=== PATIENT | female | born 1945 | race Two or more races ===

== ENCOUNTER 2018-06-23 11:18 | Outpatient (CLI) | payer OTHER ==
[~2018-06-23 11:18] MED LIST: FOSAMAX35 MG PO; KETO10TA2 PO; PEPCID40 MG PO; SARELTO; SYNTHROID112 MCG PO; TENORETIC 100 T1 TAB PO; TENORMIN50 MG; ZOCOR
== END 2018-06-23 11:23 | disposition home or self-care (01) ==
LOC: RAD 501 11:18
DX: M25.561 Pain in right knee (principal)

== ENCOUNTER → 2021-03-02 | Outpatient (CLI) | payer OTHER | END | disposition home or self-care (01) | LOC: RAD 12:00 | DX: M17.12 Unilateral primary osteoarthritis, left knee (principal); M25.562 Pain in left knee ==

== ENCOUNTER 2022-08-29 14:20 | Outpatient (CLI) | payer OTHER | END 2022-08-29 14:28 | disposition home or self-care (01) | LOC: TOM 14:20 | DX: C71.9 Malignant neoplasm of brain, unspecified (principal); G44.1 Vascular headache, not elsewhere classified ==

== ENCOUNTER → 2022-12-25 | Outpatient (CLI) | payer OTHER | END | disposition home or self-care (01) | LOC: TOM 11:41 | PROVIDERS: ATTEND Psychiatry & Neurology Clinical Neurophysiology | DX: R51.9 Headache, unspecified (principal); Z86.73 Personal history of transient ischemic attack (TIA), and cerebral infarction without residual deficits ==

== ENCOUNTER 2023-04-06 23:33 | Emergency (ER) | payer OTHER ==
[~2023-04-06] VITALS: Ht 157.5 cm; Wt 63.0 kg
[2023-04-06] MEDS ORDERED: WALFARINA (23:53)
[2023-04-06] MEDS ORDERED: PRILOSEC OTC20 MG (23:54)
[2023-04-06] MEDS ORDERED: AZOR 10-20 MG1 EACH (23:54)
[2023-04-06] MEDS ORDERED: ATORVASTATIN CA20 MG (23:54)
[2023-04-06] MEDS ORDERED: ECOTRIN81 MG (23:54)
[2023-04-07 02:46] LABS: HEMATOCRIT 42.1 % (36.0-45.00); HEMOGLOBIN 14.3 g/dL (12.0-15.00); MEAN CELL VOLUME 87.7 fL (80.00-100.00); MEAN CORPUSCULAR HEMOGLOBIN 29.8 pg (27.00-32.0); PLATELET COUNT 239 K/uL (150-450); RED BLOOD COUNT 4.79 M/uL (4.00-6.00); RED CELL DISTRIBUTION WIDTH 13.9 % (11.5-14.5)
[2023-04-07 02:53] LABS: URINE APPEARANCE Turbid; URINE BILIRRUBIN Moderate (NEGATIVE); URINE BLOOD Large; URINE COLOR Red; URINE GLUCOSE Negative (NEGATIVE); URINE LEUKOCYTE Moderate; URINE NITRATE Positive; URINE UROBILINOGEN 0.2 E.U./dl
[2023-04-07 02:56] LABS: URINE BACTERIA 506.5 uL (0.0-1933); URINE EPITHELIAL CELLS 31.9 uL (0.0-38.8); URINE WBC 178.3 uL (0.0-23.2)
[2023-04-07 03:10] LABS: PROTHROMBIN TIME > 90.0 SECONDS (9.0-11.5)
[2023-04-07 03:11] LABS: PARTIAL THROMBOPLASTIN TIME 112.2 SECONDS (22.0-34.0)
[2023-04-07 03:15] LABS: URINE PROTEIN 300 (NEGATIVE); URINE RBC > 10558.9 uL (0.0-20.8)
[2023-04-07] MEDS ORDERED: CEPHALEXIN500 MG PO (08:06)
[2023-04-07 08:37] LABS: INR 3.72
[2023-04-07 08:41] LABS: PROTHROMBIN TIME 35.4 SECONDS (9.0-11.5)
[2023-04-07 08:42] LABS: PARTIAL THROMBOPLASTIN TIME 70.3 SECONDS (22.0-34.0)
== END 2023-04-07 08:23 ==
LOC: ER 23:34
PROVIDERS: General Practice
DX: N39.0 Urinary tract infection, site not specified (principal); R31.9 Hematuria, unspecified; Z86.73 Personal history of transient ischemic attack (TIA), and cerebral infarction without residual deficits; I10 Essential (primary) hypertension; E03.9 Hypothyroidism, unspecified; Z88.6 Allergy status to analgesic agent; F32.89 Other specified depressive episodes
CPT/HCPCS: 36415; 96365; 99284; J0696; J3430

== ENCOUNTER 2023-04-10 11:05 | Outpatient (CLI) | payer OTHER ==
[~2023-04-10 11:05] MED LIST changes: +ATORVASTATIN CA20 MG; +AZOR 10-20 MG1 EACH; +CEPHALEXIN500 MG PO; +ECOTRIN81 MG; +PRILOSEC OTC20 MG; +WALFARINA
== END 2023-04-10 11:13 | disposition home or self-care (01) ==
LOC: MRI 11:05
DX: M47.812 Spondylosis without myelopathy or radiculopathy, cervical region (principal); M47.22 Other spondylosis with radiculopathy, cervical region
CPT/HCPCS: 72141

== ENCOUNTER 2023-06-28 02:45 | Inpatient (IN) | payer OTHER ==
[~2023-06-28] VITALS: Ht 61 cm; Wt 64.0 kg
[2023-06-28] MEDS ORDERED: BUSPIRONE HCL15 MG (02:56)
[2023-06-28] MEDS ORDERED: GABAPENTIN300 M2 (02:56)
[2023-06-28] MEDS ORDERED: JANTOVEN2 MG (02:56)
[2023-06-28] MEDS ORDERED: GABAPENTIN100 M2 (02:56)
[2023-06-28] MEDS ORDERED: KETOROLAC TROMETHAMINE 30 MG VIAL IV STA (03:22)
[2023-06-28] MEDS ORDERED: MORPHINE SULFATE 4 MG/ML VIAL IV STA (03:24)
[2023-06-28] MEDS ORDERED: RINGERS SOLUTION,LACTATED 1,000 ML IV STA (05:06)
[2023-06-28 05:37] LABS: HEMATOCRIT 38.3 % (36.0-45.00); HEMOGLOBIN 13.1 g/dL (12.0-15.00); MEAN CELL VOLUME 88.2 fL (80.00-100.00); MEAN CORPUSCULAR HEMOGLOBIN 30.1 pg (27.00-32.0); MEAN CORPUSCULAR HGB CONC 34.2 g/dl (32.0-36.0); PLATELET COUNT 187 K/uL (150-450); RED BLOOD COUNT 4.34 M/uL (4.00-6.00); RED CELL DISTRIBUTION WIDTH 12.2 % (11.5-14.5)
[2023-06-28 06:02] LABS: ALBUMIN 3.8 gm/dL (3.4-5.0); BILIRUBIN TOTAL 0.66 mg/dL (0.3-1.2); CALCIUM 9.3 mg/dL (8.5-10.1); CREATININE SERUM 0.76 mg/dL (0.55-1.02); GFR 73.79; GLOBULINA 3.4 G/DL (2.4-3.5); TOTAL PROTEIN 7.2 gm/dL (6.4-8.2)
[2023-06-28 06:05] LABS: POTASSIUM 2.79 mEq/L (3.5-5.1)
[2023-06-28 06:34] LABS: INR 2.33; PARTIAL THROMBOPLASTIN TIME 51.6 SECONDS (22.0-34.0)
[2023-06-28] MEDS ORDERED: POTASSIUM CHLORIDE/D5-0.9%NACL 20 MEQ/1,000 ML PIGGYBAG IV STA (07:39)
[2023-06-28] MEDS ORDERED: ASPIRIN 325 MG TABLET PO ONE (13:15)
[2023-06-28] MEDS ORDERED: ACETAMINOPHEN 500 MG GEL..CAP PO ONE (14:30)
[2023-06-28 21:41] LABS: ALBUMIN 3.3 gm/dL (3.4-5.0); BILIRUBIN TOTAL 0.73 mg/dL (0.3-1.2); CALCIUM 9.1 mg/dL (8.5-10.1); CREATININE SERUM 0.62 mg/dL (0.55-1.02); GFR 93.34; GLOBULINA 3.3 G/DL (2.4-3.5); POTASSIUM 3.52 mEq/L (3.5-5.1); TOTAL PROTEIN 6.6 gm/dL (6.4-8.2)
[2023-06-29] MEDS ORDERED: LORazepam 1 MG TABLET PO STA (04:05)
[2023-06-29] MEDS ORDERED: WARFARIN SODIUM 4 MG TABLET PO STA (04:58)
[2023-06-29] MEDS ORDERED: NITROGLYCERIN 0.4 MG/HR PATCH.TD24 TD ONE (05:00)
[2023-06-29] MEDS ORDERED: RINGERS SOLUTION,LACTATED 1,000 ML IV SCH (05:00)
[2023-06-29 06:01] LABS: HEMATOCRIT 39.7 % (36.0-45.00); HEMOGLOBIN 13.7 g/dL (12.0-15.00); MEAN CELL VOLUME 88.2 fL (80.00-100.00); MEAN CORPUSCULAR HEMOGLOBIN 30.6 pg (27.00-32.0); MEAN CORPUSCULAR HGB CONC 34.6 g/dl (32.0-36.0); PLATELET COUNT 158 K/uL (150-450); RED CELL DISTRIBUTION WIDTH 12.4 % (11.5-14.5)
[2023-06-29 07:03] LABS: ALBUMIN 3.7 gm/dL (3.4-5.0); BILIRUBIN TOTAL 1.05 mg/dL (0.3-1.2); CALCIUM 9.7 mg/dL (8.5-10.1); CREATININE SERUM 0.64 mg/dL (0.55-1.02); GFR 89.98; GLOBULINA 3.8 G/DL (2.4-3.5); POTASSIUM 3.49 mEq/L (3.5-5.1); TOTAL PROTEIN 7.5 gm/dL (6.4-8.2)
[2023-06-29 08:51] LABS: URINE APPEARANCE Clear; URINE BILIRRUBIN Negative (NEGATIVE); URINE BLOOD Small; URINE COLOR Yellow; URINE EPITHELIAL CELLS 4.6 uL (0.0-38.8); URINE GLUCOSE Negative (NEGATIVE); URINE LEUKOCYTE Negative; URINE NITRATE Negative; URINE PROTEIN Trace (NEGATIVE); URINE RBC 44.9 uL (0.0-20.8); URINE UROBILINOGEN 0.2 E.U./dl; URINE WBC 17.2 uL (0.0-23.2)
[2023-06-29] MEDS ORDERED: ATORVASTATIN CALCIUM 40 MG TABLET PO SCH (09:56)
[2023-06-29] MEDS ORDERED: ASPIRIN 81 MG TABLET.EC PO SCH (09:57)
[2023-06-29] MEDS ORDERED: GABAPENTIN 300 MG CAPSULE PO SCH (13:18)
[2023-06-29] MEDS ORDERED: ENALAPRILAT DIHYDRATE 1.25 MG/ML VIAL IV PRN (13:30)
[2023-06-29] MEDS ORDERED: ACETAMINOPHEN 500 MG GEL..CAP PO PRN (13:30)
[2023-06-29] MEDS ORDERED: FAMOtidine 40 MG TABLET PO SCH (21:00)
[2023-06-30] MEDS ORDERED: LEVOTHYROXINE SODIUM 112 MCG TABLET PO SCH (06:00)
[2023-06-30 10:06] LABS: INR 2.84
[2023-06-30 10:08] LABS: PARTIAL THROMBOPLASTIN TIME 66.2 SECONDS (22.0-34.0); PROTHROMBIN TIME 27.6 SECONDS (9.0-11.5)
[2023-06-30] MEDS ORDERED: LevETIRAcetam 500 MG/5 ML VIAL IV SCH ×2 (17:20→18:03)
[2023-06-30] MEDS ORDERED: BUSPIRONE HCL 15 MG TABLET PO SCH (20:12)
[2023-07-01 05:23] LABS: HEMATOCRIT 36.6 % (36.0-45.00); HEMOGLOBIN 12.6 g/dL (12.0-15.00); MEAN CELL VOLUME 89.2 fL (80.00-100.00); MEAN CORPUSCULAR HEMOGLOBIN 30.8 pg (27.00-32.0); MEAN CORPUSCULAR HGB CONC 34.5 g/dl (32.0-36.0); PLATELET COUNT 183 K/uL (150-450); RED CELL DISTRIBUTION WIDTH 12.3 % (11.5-14.5)
[2023-07-01 05:47] LABS: ALBUMIN 3.1 gm/dL (3.4-5.0); BILIRUBIN TOTAL 0.94 mg/dL (0.3-1.2); CREATININE SERUM 0.58 mg/dL (0.55-1.02); GFR 100.8; GLOBULINA 3.1 G/DL (2.4-3.5); PHOSPHOROUS 3.3 mg/dL (2.5-4.9); POTASSIUM 4.59 mEq/L (3.5-5.1); TOTAL PROTEIN 6.2 gm/dL (6.4-8.2)
[2023-07-01] MEDS ORDERED: AMLODIPINE BESYLATE 10 MG TABLET PO SCH (09:00)
[2023-07-01] MEDS ORDERED: MORPHINE SULFATE 2 MG/ML CARTRIDGE IV PRN (11:00)
[2023-07-01 11:36] LABS: INR 2.38
[2023-07-01 11:47] LABS: PARTIAL THROMBOPLASTIN TIME 61.3 SECONDS (22.0-34.0); PROTHROMBIN TIME 23.4 SECONDS (9.0-11.5)
[2023-07-01] MEDS ORDERED: ENOXAPARIN SODIUM 60 MG/0.6 ML SYRINGE SUBCUTANEO SCH (21:00)
[2023-07-02 05:32] LABS: INR 1.78
[2023-07-02 05:37] LABS: PARTIAL THROMBOPLASTIN TIME 48.5 SECONDS (22.0-34.0); PROTHROMBIN TIME 17.9 SECONDS (9.0-11.5)
[2023-07-02 06:06] LABS: CKMB 1.1 NG/ML (0.5-3.6)
[2023-07-02] MEDS ORDERED: MORPHINE SULFATE 4 MG/ML CARTRIDGE IV PRN (20:58)
[2023-07-03] MEDS ORDERED: MORPHINE SULFATE 4 MG/ML CARTRIDGE IV PRN (00:15)
[2023-07-03 04:52] LABS: HEMATOCRIT 35.5 % (36.0-45.00); HEMOGLOBIN 12.2 g/dL (12.0-15.00); MEAN CELL VOLUME 87.8 fL (80.00-100.00); MEAN CORPUSCULAR HEMOGLOBIN 30.1 pg (27.00-32.0); MEAN CORPUSCULAR HGB CONC 34.3 g/dl (32.0-36.0); PLATELET COUNT 184 K/uL (150-450); RED BLOOD COUNT 4.05 M/uL (4.00-6.00); RED CELL DISTRIBUTION WIDTH 12.7 % (11.5-14.5)
[2023-07-03 05:14] LABS: BILIRUBIN TOTAL 2.31 mg/dL (0.3-1.2); CALCIUM 8.8 mg/dL (8.5-10.1); CREATININE SERUM 0.59 mg/dL (0.55-1.02); GFR 98.83; GLOBULINA 3.3 G/DL (2.4-3.5); MAGNESIUM 1.9 mg/dL (1.8-2.4); PHOSPHOROUS 2.9 mg/dL (2.5-4.9); POTASSIUM 3.61 mEq/L (3.5-5.1); TOTAL PROTEIN 6.3 gm/dL (6.4-8.2)
[2023-07-03 05:16] LABS: INR 1.36
[2023-07-03 05:17] LABS: PARTIAL THROMBOPLASTIN TIME 57.6 SECONDS (22.0-34.0)
[2023-07-03] MEDS ORDERED: AMINO ACIDS/PROTEIN HYDROLYS 30 ML BLIST.PACK PO SCH (08:00)
[2023-07-04 05:33] LABS: ALBUMIN 2.7 gm/dL (3.4-5.0); BILIRUBIN TOTAL 1.43 mg/dL (0.3-1.2); BILIRUBIN,CONJUGATED 0.57 mg/dL (0.0-0.2); BILIRUBIN,UNCONJUGATED 0.86 mg/dL (0.0-0.6)
[2023-07-04] MEDS ORDERED: BUSPIRONE HCL 15 MG TABLET PO SCH (09:00)
[2023-07-04] MEDS ORDERED: LACTULOSE 10 G/15 ML ML PO SCH (22:37)
[2023-07-05] MEDS ORDERED: LACTULOSE 20 G/30 ML BLIST.PACK PO SCH (17:00)
[2023-07-05] MEDS ORDERED: MORPHINE SULFATE 4 MG/ML CARTRIDGE IV PRN (17:15)
[2023-07-06 07:50] LABS: ALBUMIN 2.8 gm/dL (3.4-5.0); BILIRUBIN TOTAL 1.13 mg/dL (0.3-1.2); BILIRUBIN,CONJUGATED 0.41 mg/dL (0.0-0.2); BILIRUBIN,UNCONJUGATED 0.72 mg/dL (0.0-0.6); TOTAL PROTEIN 6.3 gm/dL (6.4-8.2)
[2023-07-06] MEDS ORDERED: ATORVASTATIN CALCIUM 10 MG TABLET PO SCH (09:00)
== END 2023-07-06 14:40 | disposition designated cancer center or children's hospital (05) | DRG 100 ==
LOC: ER 02:45 → MEDI 06-29 15:13
PROVIDERS: Internal Medicine; ADMIT Internal Medicine; ATTEND Internal Medicine
PROC: 4A12X4Z Monitoring of Cardiac Electrical Activity, External Approach (ICD-10-PCS; principal; 2023-06-29)
PROC: B24BZZZ Ultrasonography of Heart with Aorta (ICD-10-PCS; 2023-06-30)
PROC: 02HV33Z Insertion of Infusion Device into Superior Vena Cava, Percutaneous Approach (ICD-10-PCS; 2023-07-02)
PROC: BF37ZZZ Magnetic Resonance Imaging (MRI) of Pancreas (ICD-10-PCS; 2023-07-03)
PROC: BP2 Imaging, Non-Axial Upper Bones, Computerized Tomography (CT Scan) (ICD-10-PCS; 2023-07-03)
PROC: BW40ZZZ Ultrasonography of Abdomen (ICD-10-PCS; 2023-07-03)
DX: G40.409 Other generalized epilepsy and epileptic syndromes, not intractable, without status epilepticus (principal); I21.A1 Myocardial infarction type 2; D68.62 Lupus anticoagulant syndrome; I31.39 Other pericardial effusion (noninflammatory); S42.211A Unspecified displaced fracture of surgical neck of right humerus, initial encounter for closed fracture; S43.004A Unspecified dislocation of right shoulder joint, initial encounter; W19.XXXA Unspecified fall, initial encounter; Y93.9 Activity, unspecified; Y92.9 Unspecified place or not applicable; Y99.9 Unspecified external cause status; I35.1 Nonrheumatic aortic (valve) insufficiency; I10 Essential (primary) hypertension; E03.9 Hypothyroidism, unspecified

== ENCOUNTER 2023-07-30 12:35 | Outpatient (CLI) | payer OTHER ==
[~2023-07-30 12:35] MED LIST changes: +BUSPIRONE HCL15 MG; +GABAPENTIN100 M2; +GABAPENTIN300 M2; +JANTOVEN2 MG
== END 2023-07-30 12:43 | disposition home or self-care (01) ==
LOC: RAD 12:35
PROVIDERS: ATTEND General Practice
DX: S42.301A Unspecified fracture of shaft of humerus, right arm, initial encounter for closed fracture (principal)

== ENCOUNTER 2023-11-07 11:50 | Outpatient (CLI) | payer OTHER | END 2023-11-07 11:54 | disposition home or self-care (01) | LOC: RAD 11:50 | DX: S42.291A Other displaced fracture of upper end of right humerus, initial encounter for closed fracture (principal) ==

== ENCOUNTER 2023-12-15 08:53 | Emergency (ER) | payer OTHER ==
[~2023-12-15] VITALS: Ht 157.5 cm; Wt 61.7 kg
[2023-12-15] MEDS ORDERED: KEPPRA500 MG PO (09:19)
[2023-12-15] MEDS ORDERED: AZOR 10-20 MG1 EACH PO (09:19)
[2023-12-15] MEDS ORDERED: LORazepam 2 MG/ML VIAL IV ONE (09:30)
[2023-12-15] MEDS ORDERED: 0.9 % SODIUM CHLORIDE 1,000 ML IV SCH (09:30)
[2023-12-15] MEDS ORDERED: LORazepam 2 MG/ML VIAL ONE (10:20)
[2023-12-15 11:05] LABS: HEMATOCRIT 38.8 % (36.0-45.00); HEMOGLOBIN 13.1 g/dL (12.0-15.00); MEAN CELL VOLUME 87.7 fL (80.00-100.00); MEAN CORPUSCULAR HEMOGLOBIN 29.6 pg (27.00-32.0); MEAN CORPUSCULAR HGB CONC 33.7 g/dl (32.0-36.0); PLATELET COUNT 162 K/uL (150-450); RED BLOOD COUNT 4.42 M/uL (4.00-6.00); RED CELL DISTRIBUTION WIDTH 14.1 % (11.5-14.5)
[2023-12-15 11:13] LABS: CALCIUM 9.6 mg/dL (8.5-10.1); CREATININE SERUM 0.75 mg/dL (0.55-1.02); GFR 74.93; POTASSIUM 3.67 mEq/L (3.5-5.1)
[2023-12-15 12:06] LABS: PH,URINE 5.5 (5.0-8.0); URINE APPEARANCE Clear; URINE BILIRRUBIN Negative (NEGATIVE); URINE BLOOD Trace; URINE COLOR Yellow; URINE GLUCOSE Negative (NEGATIVE); URINE KETONE Negative (NEGATIVE); URINE LEUKOCYTE Negative; URINE NITRATE Negative; URINE PROTEIN Negative (NEGATIVE); URINE UROBILINOGEN 0.2 E.U./dl
[2023-12-15 12:10] LABS: URINE BACTERIA 15.1 uL (0.0-1933); URINE EPITHELIAL CELLS 1.5 uL (0.0-38.8); URINE RBC 6.5 uL (0.0-20.8); URINE WBC 3.3 uL (0.0-23.2)
[2023-12-15 12:32] LABS: URINE CAST 1.06 uL (0.0-1.40)
== END 2023-12-15 13:59 | disposition home or self-care (01) ==
LOC: ER 08:53
PROVIDERS: Emergency Medicine
DX: G40.909 Epilepsy, unspecified, not intractable, without status epilepticus (principal); Z88.5 Allergy status to narcotic agent
CPT/HCPCS: 36415; 70450; 93005; 96365; 96366; 99284; J3490; J7030

== ENCOUNTER 2024-05-24 14:13 | Outpatient (CLI) | payer OTHER ==
[~2024-05-24 14:13] MED LIST changes: +AZOR 10-20 MG1 EACH PO; +KEPPRA500 MG PO
== END 2024-05-24 14:16 | disposition home or self-care (01) ==
LOC: RAD 14:13
PROVIDERS: ATTEND Orthopaedic Surgery
DX: S42.241D 4-part fracture of surgical neck of right humerus, subsequent encounter for fracture with routine healing (principal)

== ENCOUNTER 2024-07-02 08:49 | Inpatient (IN) | payer OTHER ==
[~2024-07-02] VITALS: Ht 157.5 cm; Wt 66.2 kg
[2024-07-02] MEDS ORDERED: LORazepam 2 MG/ML VIAL IM ONE (09:15)
[2024-07-02 10:19] LABS: HEMATOCRIT 39.9 % (36.0-45.00); HEMOGLOBIN 13.8 g/dL (12.0-15.00); MEAN CELL VOLUME 88.5 fL (80.00-100.00); MEAN CORPUSCULAR HEMOGLOBIN 30.7 pg (27.00-32.0); MEAN CORPUSCULAR HGB CONC 34.7 g/dl (32.0-36.0); PLATELET COUNT 178 K/uL (150-450); RED BLOOD COUNT 4.51 M/uL (4.00-6.00)
[2024-07-02 10:39] LABS: ALBUMIN 3.7 gm/dL (3.4-5.0); BILIRUBIN TOTAL 0.57 mg/dL (0.3-1.2); CALCIUM 8.9 mg/dL (8.5-10.1); CREATININE SERUM 0.77 mg/dL (0.55-1.02); GFR 72.5; GLOBULINA 3.9 G/DL (2.4-3.5); POTASSIUM 3.97 mEq/L (3.5-5.1); TOTAL PROTEIN 7.6 gm/dL (6.4-8.2)
[2024-07-02 10:46] LABS: URINE APPEARANCE Clear; URINE BILIRRUBIN Negative (NEGATIVE); URINE BLOOD Trace; URINE COLOR Yellow; URINE GLUCOSE Negative (NEGATIVE); URINE KETONE Negative (NEGATIVE); URINE LEUKOCYTE Negative; URINE NITRATE Negative; URINE UROBILINOGEN 0.2 E.U./dl
[2024-07-02 10:51] LABS: URINE BACTERIA 102.7 uL (0.0-1933); URINE EPITHELIAL CELLS 6.1 uL (0.0-38.8); URINE WBC 7.9 uL (0.0-23.2)
[2024-07-02 11:40] LABS: URINE PROTEIN 100 (NEGATIVE)
[2024-07-02] MEDS ORDERED: NITROGLYCERIN IN 5 % DEXTROSE 50 MG/250 ML KIT IV SCH (14:15)
[2024-07-02] MEDS ORDERED: NITROGLYCERIN IN 5 % DEXTROSE 50 MG/250 ML BOTTLE IV ONE (14:28)
[2024-07-02] MEDS ORDERED: LevETIRAcetam 500 MG TAB. PO ONE (15:00)
[2024-07-02] MEDS ORDERED: ENOXAPARIN SODIUM 60 MG/0.6 ML SYRINGE SUBCUTANEO SCH (17:42)
[2024-07-02] MEDS ORDERED: ATORVASTATIN CALCIUM 40 MG TABLET PO SCH (17:43)
[2024-07-02] MEDS ORDERED: METOPROLOL SUCCINATE 25 MG TAB.SR.24H PO SCH (17:44)
[2024-07-02] MEDS ORDERED: CLOPIDOGREL BISULFATE 75 MG TABLET PO SCH (17:44)
[2024-07-02] MEDS ORDERED: 0.9 % SODIUM CHLORIDE 1,000 ML IV SCH (17:45)
[2024-07-02] MEDS ORDERED: ASPIRIN 325 MG TABLET.EC PO ONE ×2 (17:45→20:34)
[2024-07-02] MEDS ORDERED: NITROGLYCERIN IN 5 % DEXTROSE 250 ML IV SCH (17:45)
[2024-07-02 19:49] LABS: INR 2.58
[2024-07-02 20:03] LABS: PARTIAL THROMBOPLASTIN TIME 65.5 SECONDS (22.0-34.0); PROTHROMBIN TIME 26.2 SECONDS (9.0-11.5)
[2024-07-02 20:07] VITALS: BP 110/72; O2SAT 96
[2024-07-02] MEDS ORDERED: PHYTONADIONE 10 MG/ML AMPUL IV ONE (20:30)
[2024-07-02] MEDS ORDERED: BUSPIRONE HCL 15 MG TABLET PO ONE (20:30)
[2024-07-02 21:08] VITALS: BP 88/79; O2SAT 98
[2024-07-02] MEDS ORDERED: ACETAMINOPHEN 500 MG GEL..CAP PO ONE (21:17)
[2024-07-02 23:16] VITALS: BP 91/70; O2SAT 97
[2024-07-03] VITALS (17 sets, daily range): BP systolic 100–142; BP diastolic 59–82; O2SAT 94–100
[2024-07-03] MEDS ORDERED: LORazepam 1 MG TABLET PO ONE (00:30)
[2024-07-03] MEDS ORDERED: LevETIRAcetam 500 MG/5 ML VIAL IV SCH (05:00)
[2024-07-03] MEDS ORDERED: LevETIRAcetam 500 MG/5 ML VIAL IV ONE (05:45)
[2024-07-03] MEDS ORDERED: LEVOTHYROXINE SODIUM 112 MCG TABLET PO SCH (06:00)
[2024-07-03] MEDS ORDERED: LORazepam 2 MG/ML VIAL ONE (07:15)
[2024-07-03] MEDS ORDERED: NITROGLYCERIN IN 5 % DEXTROSE 250 ML IV SCH (08:15)
[2024-07-03] MEDS ORDERED: CHLORHEXIDINE GLUCONATE 120 ML BOTTLE TOP ONE (08:23)
[2024-07-03 08:36] LABS: INR 2.29
[2024-07-03 08:44] LABS: PROTHROMBIN TIME 23.5 SECONDS (9.0-11.5)
[2024-07-03 08:45] LABS: PARTIAL THROMBOPLASTIN TIME 64.1 SECONDS (22.0-34.0)
[2024-07-03] MEDS ORDERED: FAMOTIDINE/PF 20 MG in 0.9 % SODIUM CHLORIDE 8 ML IV PUSH SCH (09:00)
[2024-07-03] MEDS ORDERED: BUSPIRONE HCL 15 MG TABLET PO SCH (09:00)
[2024-07-03] MEDS ORDERED: ENOXAPARIN SODIUM 60 MG/0.6 ML SYRINGE SUBCUTANEO SCH (09:00)
[2024-07-03] MEDS ORDERED: ASPIRIN 81 MG TAB.CHEW PO SCH (09:00)
[2024-07-03] MEDS ORDERED: LevETIRAcetam 5 MG/1 ML REDILUIDO IV SCH (17:00)
[2024-07-04 00:50] VITALS: BP 124/89; O2SAT 97
[2024-07-04 03:38] VITALS: BP 139/78; O2SAT 93
[2024-07-04 12:12] VITALS: O2SAT 95
[2024-07-04 16:24] VITALS: O2SAT 94
[2024-07-04 17:43] VITALS: BP 111/60; O2SAT 97
[2024-07-04 20:27] LABS: C-REACTIVE PROTEIN 6.8 MG/DL (0.00-0.29)
[2024-07-04 22:14] VITALS: O2SAT 94
[2024-07-05] VITALS (10 sets, daily range): BP systolic 84–139; BP diastolic 61–90; O2SAT 94–100
[2024-07-05] MEDS ORDERED: BUSPIRONE HCL 15 MG TABLET PO ONE (01:15)
[2024-07-05 02:20] LABS: ABG PO2 113.7 mmHg (80-100); ABG pCO2 24.7 mmHg (35-45); BASE EXCESS -8.8 mmol/l; BICARBONATE 14.3 mmol/l (23-25); SaO2 98.2 %; Tco2 15.1 mmol/l
[2024-07-05] MEDS ORDERED: ALPRAzolam 1 MG TABLET PO ONE (02:30)
[2024-07-05 02:33] LABS: allen test SATISFACTORY; puncture site RADIAL RIGHT
[2024-07-05 02:34] LABS: o2 100 %
[2024-07-05] MEDS ORDERED: LEVOTHYROXINE SODIUM 100 MCG TABLET PO SCH (06:00)
[2024-07-05] MEDS ORDERED: FUROsemide 20 MG/2 ML VIAL IV STA (07:41)
[2024-07-05] MEDS ORDERED: NITROGLYCERIN IN 5 % DEXTROSE 250 ML IV SCH (07:45)
[2024-07-05] MEDS ORDERED: LORazepam 2 MG/ML VIAL IV PRN (07:45)
[2024-07-05] MEDS ORDERED: PANTOPRAZOLE SODIUM 40 MG/VIAL VIAL IV PUSH SCH (09:00)
[2024-07-05] MEDS ORDERED: METOPROLOL SUCCINATE 50 MG TAB.SR.24H PO SCH (09:00)
[2024-07-05] MEDS ORDERED: ALPRAzolam 0.5 MG TABLET PO SCH (09:00)
[2024-07-05] MEDS ORDERED: FUROsemide 20 MG/2 ML VIAL IV SCH (09:00)
[2024-07-05] MEDS ORDERED: SPIRONOLACTONE 25 MG TABLET PO SCH (09:00)
[2024-07-05] MEDS ORDERED: EMPAGLIFLOZIN 10 MG TABLET PO SCH (09:00)
[2024-07-05 11:08] LABS: HEMATOCRIT 36.7 % (36.0-45.00); HEMOGLOBIN 12.2 g/dL (12.0-15.00); MEAN CELL VOLUME 90.1 fL (80.00-100.00); MEAN CORPUSCULAR HGB CONC 33.3 g/dl (32.0-36.0); PLATELET COUNT 157 K/uL (150-450); RED BLOOD COUNT 4.07 M/uL (4.00-6.00); RED CELL DISTRIBUTION WIDTH 12.9 % (11.5-14.5)
[2024-07-05 11:39] LABS: ALBUMIN 2.8 gm/dL (3.4-5.0); BILIRUBIN TOTAL 1.38 mg/dL (0.3-1.2); CALCIUM 7.7 mg/dL (8.5-10.1); CREATININE SERUM 0.62 mg/dL (0.55-1.02); GFR 93.09; POTASSIUM 3.59 mEq/L (3.5-5.1); TOTAL PROTEIN 5.8 gm/dL (6.4-8.2)
[2024-07-05] MEDS ORDERED: VALPROIC ACID IV SCH (13:00)
[2024-07-06] VITALS (8 sets, daily range): BP systolic 91–126; BP diastolic 56–74; O2SAT 93–99
[2024-07-07] VITALS (10 sets, daily range): BP systolic 96–140; BP diastolic 60–77; O2SAT 90–97
[2024-07-07] MEDS ORDERED: BUSPIRONE HCL 15 MG TABLET PO SCH (09:00)
[2024-07-07] MEDS ORDERED: FUROsemide 20 MG/2 ML VIAL IV SCH (09:00)
[2024-07-07] MEDS ORDERED: ACETAMINOPHEN 500 MG GEL..CAP PO PRN (11:45)
[2024-07-08] VITALS (9 sets, daily range): BP systolic 109–118; BP diastolic 57–74; O2SAT 90–99
[2024-07-08 05:02] LABS: HEMATOCRIT 36.1 % (36.0-45.00); HEMOGLOBIN 12.5 g/dL (12.0-15.00); MEAN CELL VOLUME 88.6 fL (80.00-100.00); MEAN CORPUSCULAR HEMOGLOBIN 30.7 pg (27.00-32.0); MEAN CORPUSCULAR HGB CONC 34.6 g/dl (32.0-36.0); PLATELET COUNT 172 K/uL (150-450); RED BLOOD COUNT 4.07 M/uL (4.00-6.00); RED CELL DISTRIBUTION WIDTH 12.7 % (11.5-14.5)
[2024-07-08 07:42] LABS: ALBUMIN 2.3 gm/dL (3.4-5.0); BILIRUBIN TOTAL 0.98 mg/dL (0.3-1.2); CALCIUM 7.6 mg/dL (8.5-10.1); CREATININE SERUM 0.58 mg/dL (0.55-1.02); FREE TRIODOTIRONINE 0.65 pg/ml (2.18-3.98); GFR 100.54; MAGNESIUM 1.8 mg/dL (1.8-2.4); PHOSPHOROUS 2.6 mg/dL (2.5-4.9); T4 FREE 1.24 NG/ML (0.76-1.46); T4 TOTAL 7.15 UG/DL (4.8-13.9); TOTAL PROTEIN 5.3 gm/dL (6.4-8.2)
[2024-07-08 08:15] LABS: TSH 0.316 uIU/mL (0.358-3.74)
[2024-07-08 08:16] LABS: POTASSIUM 2.56 mEq/L (3.5-5.1)
[2024-07-08] MEDS ORDERED: DIVALPROEX SODIUM 500 MG TABLET.DR PO SCH (09:00)
[2024-07-08] MEDS ORDERED: POTASSIUM CHLORIDE IN WATER 40 MEQ/100 ML PIGGYBAG IV SCH (12:00)
[2024-07-08 16:08] LABS: BB 0 % (0); MM 97 % (97-100); c mb 3 % (0-3); macro t 0 % (Not Observed); macro tyoe 2 0 % (Not Observed); total ck 334 U/L (32-182)
[2024-07-08] MEDS ORDERED: WARFARIN SODIUM 2.5 MG TABLET PO SCH (21:00)
[2024-07-08 22:04] LABS: dRVVT 131.6 sec (0.0-47.0); interp Comment: (.); ptt-la 129.5 sec (0.0-43.5)
[2024-07-09] VITALS (9 sets, daily range): BP systolic 114–133; BP diastolic 65–77; O2SAT 93–99
[2024-07-09 05:34] LABS: INR 1.33; PROTHROMBIN TIME 14.2 SECONDS (9.0-11.5)
[2024-07-09 05:38] LABS: PARTIAL THROMBOPLASTIN TIME 41.6 SECONDS (22.0-34.0)
[2024-07-09] MEDS ORDERED: PANTOPRAZOLE SODIUM 40 MG TABLET.DR PO SCH (09:00)
[2024-07-10] VITALS (9 sets, daily range): BP systolic 85–116; BP diastolic 48–74; O2SAT 94–100
[2024-07-10 07:54] LABS: INR 1.72
[2024-07-10 07:58] LABS: PARTIAL THROMBOPLASTIN TIME 60.6 SECONDS (22.0-34.0)
[2024-07-11] VITALS (8 sets, daily range): BP systolic 101–128; BP diastolic 52–72; O2SAT 93–99
[2024-07-11 07:54] LABS: INR 2.3
[2024-07-11 07:59] LABS: PARTIAL THROMBOPLASTIN TIME 63.7 SECONDS (22.0-34.0); PROTHROMBIN TIME 23.6 SECONDS (9.0-11.5)
[2024-07-12 01:28] VITALS: BP 117/60
[2024-07-12 05:34] VITALS: O2SAT 96
[2024-07-12 07:02] LABS: ALBUMIN 2.6 gm/dL (3.4-5.0); CALCIUM 8.9 mg/dL (8.5-10.1); CREATININE SERUM 0.7 mg/dL (0.55-1.02); GFR 80.93; PHOSPHOROUS 2.8 mg/dL (2.5-4.9); POTASSIUM 3.74 mEq/L (3.5-5.1)
[2024-07-12 08:02] VITALS: BP 118/70; O2SAT 98
[2024-07-12 09:18] VITALS: O2SAT 95
[2024-07-12 13:02] VITALS: O2SAT 99
[2024-07-12] MEDS ORDERED: CLOPIDOGREL BIS75 MG PO (15:25)
[2024-07-12] MEDS ORDERED: WARFARIN SODIU2.5 MG PO (15:25)
[2024-07-12] MEDS ORDERED: ATORVASTATIN CA20 MG PO (15:26)
[2024-07-12] MEDS ORDERED: SPIRONOLACTONE25 MG PO (15:27)
[2024-07-12] MEDS ORDERED: TOPROL XL50 M1 PO (15:27)
[2024-07-12] MEDS ORDERED: DIVALPROEX SOD500 MG PO (15:28)
[2024-07-12] MEDS ORDERED: JARDIANCE10 MG PO (15:28)
[2024-07-12] MEDS ORDERED: ADULT ASPIRIN81 MG PO (15:28)
[2024-07-12] MEDS ORDERED: SYNTHROID100 MCG PO (15:29)
[2024-07-12] MEDS ORDERED: KEPPRA1000 MG PO (15:31)
== END 2024-07-12 15:44 | disposition home or self-care (01) | DRG 100 ==
LOC: ER 08:49 → ICU-2 19:46 → MEDI 07-04 08:03 → MEDJ 07-11 17:04 → MEDI 07-11 17:11
PROVIDERS: Emergency Medicine; General Practice; Internal Medicine; ADMIT Internal Medicine; ATTEND Internal Medicine
PROC: B020ZZZ Computerized Tomography (CT Scan) of Brain (ICD-10-PCS; principal; 2024-07-02)
PROC: B246ZZZ Ultrasonography of Right and Left Heart (ICD-10-PCS; 2024-07-02)
PROC: B345ZZZ Ultrasonography of Bilateral Common Carotid Arteries (ICD-10-PCS; 2024-07-02)
PROC: B348ZZZ Ultrasonography of Bilateral Internal Carotid Arteries (ICD-10-PCS; 2024-07-02)
PROC: 4A12X4Z Monitoring of Cardiac Electrical Activity, External Approach (ICD-10-PCS; 2024-07-02)
PROC: B246ZZZ Ultrasonography of Right and Left Heart (ICD-10-PCS; 2024-07-10)
DX: G40.89 Other seizures (principal); I21.4 Non-ST elevation (NSTEMI) myocardial infarction; I50.23 Acute on chronic systolic (congestive) heart failure; D68.62 Lupus anticoagulant syndrome; I69.398 Other sequelae of cerebral infarction; G93.89 Other specified disorders of brain; I65.01 Occlusion and stenosis of right vertebral artery; I11.0 Hypertensive heart disease with heart failure; R45.1 Restlessness and agitation; E03.9 Hypothyroidism, unspecified; E78.5 Hyperlipidemia, unspecified; Z79.01 Long term (current) use of anticoagulants

== ENCOUNTER 2024-07-30 10:57 | Outpatient (CLI) | payer OTHER ==
[~2024-07-30 10:57] MED LIST changes: +ADULT ASPIRIN81 MG PO; +ATORVASTATIN CA20 MG PO; +CLOPIDOGREL BIS75 MG PO; +DIVALPROEX SOD500 MG PO; +JARDIANCE10 MG PO; +KEPPRA1000 MG PO; +SPIRONOLACTONE25 MG PO; +SYNTHROID100 MCG PO; +TOPROL XL50 M1 PO; +WARFARIN SODIU2.5 MG PO
== END 2024-07-30 10:58 | disposition home or self-care (01) ==
LOC: NUCLEAR 10:57
PROVIDERS: ATTEND Internal Medicine
DX: I50.30 Unspecified diastolic (congestive) heart failure (principal)

== ENCOUNTER 2024-08-04 13:57 | Outpatient (CLI) | payer OTHER | END 2024-08-04 13:59 | disposition home or self-care (01) | LOC: RAD 13:57 | PROVIDERS: ATTEND Orthopaedic Surgery | DX: M17.11 Unilateral primary osteoarthritis, right knee (principal) ==

== ENCOUNTER 2025-01-24 07:43 | Emergency (ER) | payer OTHER ==
[~2025-01-24] VITALS: Ht 157.5 cm; Wt 82.6 kg
[2025-01-24] MEDS ORDERED: LORazepam 2 MG/ML VIAL IM ONE (08:15)
[2025-01-24] MEDS ORDERED: 0.9 % SODIUM CHLORIDE 1,000 ML IV SCH (08:15)
[2025-01-24] MEDS ORDERED: LORazepam 2 MG/ML VIAL ONE (08:26)
[2025-01-24 08:57] LABS: BASO % 0.2 % (0.1-1.2); EOS # 0.06 (0.04-0.54); EOS % 0.7 % (0.7-7.0); LYMPH # 1.27 (1.18-3.74); LYMPH % 15.3 % (19.3-53.1); MEAN PLATELET VOLUME 11.50 fl (9.4-12.4); MONO # 0.50 (0.24-0.82); MONO % 6.0 % (4.7-12.5); NEUT # 6.43 (1.56-6.13); NEUT % 77.6 % (34.0-71.1); RED CELL DISTRIBUTION WIDTH 12.4 % (11.6-14.4)
[2025-01-24 10:04] LABS: BUN CREA RATIO 21.0 (7.0-25.0); CREATININE SERUM 0.97 mg/dL (0.55-1.02); GFR 55.54; GLUCOSE FASTING 104.0 mg/dL (65-100); OSMOLALITY SERUM 269.0 MOSM/KG (275-295)
[2025-01-24 12:02] LABS: URINE APPEARANCE Clear; URINE BILIRRUBIN Negative (NEGATIVE); URINE BLOOD Small; URINE COLOR Yellow; URINE KETONE Negative (NEGATIVE); URINE LEUKOCYTE Trace; URINE NITRATE Negative; URINE PROTEIN Negative (NEGATIVE); URINE UROBILINOGEN 0.2 E.U./dl
[2025-01-24 12:06] LABS: URINE BACTERIA 68.3 uL (0.0-1933); URINE EPITHELIAL CELLS 21.8 uL (0.0-38.8); URINE RBC 11.8 uL (0.0-20.8); URINE WBC 22.6 uL (0.0-23.2)
[2025-01-24 12:23] LABS: URINE CAST 1.17 uL (0.0-1.40); URINE GLUCOSE 250 MG/DL (NEGATIVE)
== END 2025-01-24 13:34 | disposition home or self-care (01) ==
LOC: ER 07:43
PROVIDERS: Emergency Medicine
DX: R56.9 Unspecified convulsions (principal); I10 Essential (primary) hypertension; E03.8 Other specified hypothyroidism; Z88.5 Allergy status to narcotic agent
CPT/HCPCS: 36415; 93005; 96365; 96366; 96372; 99282; J3490; J7030

== ENCOUNTER 2025-03-02 15:21 | Outpatient (CLI) | payer OTHER | END 2025-03-02 15:27 | disposition home or self-care (01) | LOC: RAD 15:21 | PROVIDERS: ATTEND Internal Medicine | DX: R07.9 Chest pain, unspecified (principal); R07.89 Other chest pain; M54.2 Cervicalgia ==

== ENCOUNTER 2025-04-11 13:16 | Outpatient (CLI) | payer OTHER | END 2025-04-11 13:20 | disposition home or self-care (01) | LOC: MAMO-SONO 13:16 | DX: C50.919 Malignant neoplasm of unspecified site of unspecified female breast (principal); Z12.31 Encounter for screening mammogram for malignant neoplasm of breast ==

== ENCOUNTER 2025-04-27 10:17 | Emergency (ER) | payer OTHER ==
[~2025-04-27] VITALS: Ht 157.5 cm; Wt 63.0 kg
[2025-04-27 13:13] LABS: BASO % 0.3 % (0.1-1.2); EOS # 0.08 (0.04-0.54); EOS % 0.8 % (0.7-7.0); LYMPH # 1.41 (1.18-3.74); LYMPH % 14.7 % (19.3-53.1); MEAN PLATELET VOLUME 9.90 fl (9.4-12.4); MONO # 0.84 (0.24-0.82); MONO % 8.8 % (4.7-12.5); NEUT # 7.14 (1.56-6.13); NEUT % 74.8 % (34.0-71.1); RED CELL DISTRIBUTION WIDTH 13.2 % (11.6-14.4)
[2025-04-27 13:46] LABS: COVID-19 AG NEGATIVE (NEGATIVE)
[2025-04-27 13:48] LABS: ALT/SGPT 26.0 U/L (12-78); AST/SGOT 18.0 U/L (15-37); BILIRUBIN TOTAL 0.82 mg/dL (0.3-1.2); BUN CREA RATIO 18.0 (7.0-25.0); CREATININE SERUM 0.87 mg/dL (0.55-1.02); GFR 62.97; GLOBULINA 4.3 G/DL (2.4-3.5); GLUCOSE FASTING 113.0 mg/dL (65-100); OSMOLALITY SERUM 280.0 MOSM/KG (275-295)
[2025-04-27] MEDS ORDERED: GILTUSS COUGH-118 M1 PO (16:20)
== END 2025-04-27 19:23 | disposition home or self-care (01) ==
LOC: ER 10:17
PROVIDERS: Preventive Medicine Public Health & General Preventive Medicine
DX: B34.9 Viral infection, unspecified (principal); J00 Acute nasopharyngitis [common cold]; Z88.5 Allergy status to narcotic agent; I10 Essential (primary) hypertension; J06.9 Acute upper respiratory infection, unspecified; Z20.822 Contact with and (suspected) exposure to COVID-19